=== PATIENT | female | born 1980 | race Two or more races ===

== ENCOUNTER → 2024-08-28 | Outpatient (CLI) | payer OTHER, SELFPAY ==
--- NOTE | 2024-08-28 08:45 | XR_ITS ---
Examination: Breast ultrasound, unilateral, left complete Date and time of exam: August 28, 2024 at 0854 hrs. Indications: Mammogram Reason 2023 10 mm round nodule upper slightly inner left breast, left breast sonogram November 25, 2022 12:00 nodule 11 x 11 mm 12:00 nodule 5 x 6 mm Technique: Real-time seals scale ultrasonographic imaging performed left breast including all 4 quadrants as well as nipple retroareolar and axillary region. Findings: 12:00 oval mass lobular margins 13 x 11 mm 12:00 oval mass lobular margins 5 x 4 mm 11:00 retroareolar cyst 5 x 5 mm Multiple smaller cysts Impression: BI-RADS Category 3: Probably benign findings One additional 6 month left breast sonogram follow-up strongly recommended to document stability of solid nodules 12:00 position left breast
--- NOTE | 2024-08-28 09:15 | XR_ITS ---
Examination: Diagnostic digital mammography, bilateral Computer aided detection 3-D breast Tomosynthesis, bilateral Date and time of exam: August 28, 2024 0914 hrs. Compared to mammograms dating to April 18, 2020 Technique: Nonmagnified MLO, CC views of the breasts to been obtained, reconstructed from 3-D Tomosynthesis images. R2 computer aided detection program utilized for evaluation of suspicious masses and/or abnormal calcifications. 3-D Tomosynthesis images obtained. Findings: The breasts are heterogeneously dense, which may obscure small masses Stable 10 mm focal asymmetry slightly inner left breast on the CC view No interval suspicious masses However, please see the left breast sonogram report today indicating 12:00 nodules requiring 6 month follow-up left breast sonography Impression: BI-RADS Category 2: Benign findings Recommend yearly follow-up mammography Please see the left breast sonogram report today indicating 2 nodules in the 12:00 position left breast requiring 6 month left breast sonography follow-up
== END | disposition home or self-care (01) ==
LOC: CDIM 08:36
PROVIDERS: Referring Provider Physician Assistant Medical; Visit Provider Physician Assistant Medical
DX: R92.323 Mammographic fibroglandular density, bilateral breasts (principal); N63.25 Unspecified lump in the left breast, overlapping quadrants
CPT/HCPCS: 76641; 77062; 77066; G0279

== ENCOUNTER 2024-10-06 20:10 | Emergency (ER) | payer MEDICAID, SELFPAY ==
[2024-10-06 21:10] VITALS: BP 129/79; PULSE 82; RESP 16; TEMP 37.1; O2SAT 99
--- NOTE | 2024-10-06 21:49 | XR_ITS ---
Examination: Pelvic ultrasound, transabdominal, complete Technique: Transabdominal ultrasound of the pelvis performed using grayscale imaging Date and time of exam: October 16, 2024 10:29 PM Indications: Left lower abdomen pain beginning 4 days ago Findings: Uterus 6.7 x 4.2 x 5.8 cm 8 x 10 x 11 mm calcification in the uterine fundus Endometrial stripe 10 mm Right ovary 2.0 x 2.0 x 1.7 cm arterial flow Left ovary obscured by bowel gas Impression: Small benign calcification in the uterus No right adnexal mass Left ovary obscured by bowel gas
--- NOTE | 2024-10-06 21:50 | PD.EDABDPN ---
ED Abdominal Pain RME/HPI General Chief Complaint: Abdominal Pain Stated complaint: LEFT LOWER ABD PAIN Time seen by provider: 10/06/24 21:48 Arrival date/time: 10/06/24 20:10 44F with no significant PMH presents to ED with 3 days of intermittent LLQ/pelvic pain. Patient denies N/V, vaginal bleeding, dysuria, and diarrhea. Possible mild constipation. Limitations: no limitations Related Data Previous Rx's ?Medication ?Instructions ?Recorded pantoprazole 40 mg tablet,delayed 40 mg PO QDAY #20 tabs 09/06/21 release (Protonix) amoxicillin 875 mg-potassium 1 tab PO BID #14 tabs 09/27/22 clavulanate 125 mg tablet ibuprofen 600 mg tablet 600 mg PO TID PRN pain #30 tabs 09/27/22 loperamide 2 mg capsule (Imodium 2 mg PO Q6H PRN loose stool #14 07/07/23 A-D) caps ondansetron 4 mg disintegrating 4 mg PO Q8H PRN nausea and 07/07/23 tablet vomiting #10 tabs phenazopyridine 200 mg tablet 200 mg PO TID PRN pain 6 doses #6 08/31/23 (Pyridium) tabs benzonatate 100 mg capsule 100 mg PO TID PRN cough #10 caps 04/03/24 Allergies Allergy/AdvReac Type Severity Reaction Status Date / Time No Known Allergies Allergy Verified 04/03/24 17:59 Review of Systems Review of Systems Systems Reviewed: All systems reviewed, normal except as documented Constitutional Constitutional: Reports system reviewed and no additional complaints, except as documented, Denies fever(s) and Denies headache(s) ENT Ears, Nose, Mouth, and Throat: Denies disequilibrium and Denies headache(s) Cardiovascular Cardiovascular: Reports system reviewed and no additional complaints, except as documented, Denies chest pain and Denies dyspnea Respiratory Respiratory: Reports system reviewed and no additional complaints, except as documented, Denies cough and Denies dyspnea Gastrointestinal Gastrointestinal: Reports system reviewed and no additional complaints, except as documented, Reports as per HPI, Reports abdominal pain, Denies nausea and Denies vomiting Genitourinary Genitourinary: Reports as per HPI and Reports pelvic pain Neurologic Neurologic: Reports system reviewed and no additional complaints, except as documented, Denies confusion, Denies disequilibrium and Denies headache(s) Psychiatric Psychiatric: Denies confusion Past Medical History Past Medical History CARDIAC: Negative Congestive Heart Failure RESPIRATORY: Negative Chronic Obstructive Pulmonary Disease (COPD) GENITOURINARY: Negative Renal Disease MUSCULOSKELETAL: Positive Musculoskeletal Disorders ENDOCRINE: Negative Diabetes Mellitus Type 1 or Diabetes Mellitus Type 2 Social History SMOKING STATUS: Never smoker ED Exam General Limitations: Present no limitations General appearance: Present alert and in no apparent distress Head Head exam: Present atraumatic Eye Eye exam: Present normal appearance, PERRL and EOMI ENT ENT exam: Present normal exam, normal oropharynx and mucous membranes moist Neck Neck exam: Present normal inspection, full ROM and trachea midline Chest Chest inspection: Present normal inspection and symmetric chest wall rise Respiratory Respiratory exam: Present normal lung sounds bilaterally Cardiovascular Cardiovascular exam: Present regular rate, normal rhythm and normal heart sounds Abdominal Exam Abdominal exam: Present soft and normal bowel sounds Abdominal tenderness: Present LLQ Extremities Exam Extremities exam: Present normal inspection and full ROM Back Exam Back exam: Present normal inspection and full ROM Neurological Exam Neurological exam: Present alert, oriented X3 and CN II-XII intact Psychiatric Psychiatric exam: Present normal affect and normal mood Skin Skin exam: Present warm, dry, intact and normal color Course Quality Measures none Orders Category Date Time Status US pelvic complete Stat Exams 10/06/24 21:49 Completed US transvaginal Stat Exams 10/06/24 22:48 Completed CBC Stat Lab 10/06/24 21:57 Completed CMP [Comprehensive Metabolic Panel] Stat Lab 10/06/24 21:57 Completed Drug Screen,Urine Stat Lab 10/06/24 23:08 Completed HCG Qualitative,Urine Stat Lab 10/06/24 23:08 Completed Lipase Stat Lab 10/06/24 21:57 Completed UA [Urinalysis] Stat Lab 10/06/24 23:08 Completed Lactulose Syrup [Enulose Syrup] Med 10/07/24 00:49 Once 10 gm PO X1 ONE Naproxen [Naprosyn] Med 10/07/24 00:49 Discontinued 500 mg PO X1 ONE Vital Signs Vital signs: Vital Signs Temperature 98.8 F 10/06/24 21:10 Pulse Rate 82 10/06/24 21:10 Respiratory Rate 16 10/06/24 21:10 Blood Pressure 129/79 10/06/24 21:10 Pulse Oximetry (%) 99 10/06/24 21:10 Oxygen Delivery Method Room Air 10/06/24 21:10 O2 at 99% on RA and WNLs Abdominal Pain MDM MDM Narrative MDM Narrative:: 44F with no significant PMH presents to ED with 3 days of intermittent LLQ/pelvic pain. Patient denies N/V, vaginal bleeding, dysuria, and diarrhea. Possible mild constipation. Physical exam reveals LLQ/pelvic tenderness. Patient is afebrile, calm, and alert. US unremarkable though L ovary not seen due to bowel gas. Suspicion for ovarian torsion low given pain is intermittent and mild. No leukocytosis. CMP unremarkable. Lipase normal. UA clean. Suspicion for diverticulitis also low given clinical presentation. No diverticulosis on CT from 2 years ago here. Pain may be due to constipation, which patient has had chronically for the past year. Property Accountant given including to return for CT if worsening pain. Patient data External records reviewed:: [facility] previous records Clinical information provided by:: patient Social determinants that could affect healthcare access:: none Patient has the following chronic illnesses:: none How is presenting disease/condition affected by chronic disease/condition?: no chronic disease Evaluation data The following diagnostics were reviewed and interpreted by me:: lab results Lab and/or radiology exams considered but not ordered:: ordered Interpretation Summary: above Medications / Prescriptions Medications or Prescriptions considered but not ordered:: ordered Medication administrations:: Medication Administration History Lactulose (Lactulose Syrup 20 Gm/30 Ml Udc) 10 gm PO X1 ONE; Protocol Stop: 10/07/24 00:50 Discontinued Medications Naproxen (Naproxen 250 Mg Tablet) 500 mg PO X1 ONE Stop: 10/07/24 00:50 above Consultations Consultation(s) initiated? (list below): No Diagnosis Differential diagnosis abdominal pain: abdominal pain, acute appendicitis, calculus of kidney, constipation, diverticulitis, endometriosis, gastroenteritis, pancreatitis and small bowel obstruction Most likely diagnosis given after review of the tests above:: ab locke Admission Indicated Admission indicated?: not indicated Admission Request Was there a request for admission?: No Disposition Plan Disposition Plan: Discharge Discharge Attestation Discharge Attestation: The patient and all family members were given an opportunity to ask questions and understood the discharge instructions. Discharge instructions specifically effects, indications for sooner follow up or return to the emergency department, and the expected course of current diagnosis. Patient condition: Stable Discharge Plan Plan Patient Disposition: HOME (Self Care) Disposition Comment: Stable Prescriptions/Referrals Prescriptions/Med Rec: No Action pantoprazole [Protonix] 40 mg tablet,delayed release (DR/EC) 40 mg PO QDAY Qty: 20 0RF amoxicillin-pot clavulanate 875-125 mg tablet 1 tab PO BID Qty: 14 0RF ibuprofen 600 mg tablet 600 mg PO TID PRN (Reason: pain) Qty: 30 0RF phenazopyridine [Pyridium] 200 mg tablet 200 mg PO TID PRN (Reason: pain) Qty: 6 0RF loperamide [Imodium A-D] 2 mg capsule 2 mg PO Q6H PRN (Reason: loose stool) Qty: 14 0RF ondansetron 4 mg tablet,disintegrating 4 mg PO Q8H PRN (Reason: nausea and vomiting) Qty: 10 0RF benzonatate 100 mg capsule 100 mg PO TID PRN (Reason: cough) Qty: 10 0RF Referrals: Bernardo Walsh MD [Primary Care Provider] - In 1 week Problem List Clinical Impression: Abdominal pain Patient/Caregiver Discharge Instructions Education Materials: ED Abdominal Pain Unkn Cause Fem Additional Instructions: Please follow-up with PCP within 24-48 hours and return immediately if symptoms worsen. Print Language: Amharic Stand Alone Forms: Patient Portal Info Letter PA/COMMUNITY MARKETING COORDINATOR Supervising Physician PA/COMMUNITY MARKETING COORDINATOR Supervising Physician: Dr. Zamora
[2024-10-06 22:17] LABS: Basophils # (Auto) 0.1 Thou/mm3 (0.0-0.2); Basophils % (Auto) 1 % (0-2.5); Eosinophils # (Auto) 0.2 Thou/mm3 (0.0-0.5); Eosinophils % (Auto) 2 % (0-10); Hematocrit 37.6 % (36.0-46.0); Hemoglobin 12.4 g/dL (12.0-16.0); Immature Granulocytes % (Auto) 0 % (0-0); Immature Granulocytes Auto 0.02 Thou/mm3 (0.00-0.00); Lymphocytes # (Auto) 3.6 Thou/mm3 (1.0-4.8); Lymphocytes % (Auto) 42 % (10-50); Mean Corpuscular Hemoglobin 28.7 pg (25.0-35.0); Mean Corpuscular Volume 87 fL (80-100); Monocytes # (Auto) 0.9 Thou/mm3 (0.0-0.8); Monocytes % (Auto) 10 % (0-12); Neutrophils # (Auto) 3.9 Thou/mm3 (1.8-7.7); Neutrophils % (Auto) 45 % (37-80); Nucleated Red Blood Cell % 0 /100 WBC (0); Platelet Count 262 Thou/mm3 (140-440); RDW Standard Deviation 43.3 fL (36.4-46.3); Red Blood Count 4.32 Miln/mm3 (4.00-5.20); White Blood Count 8.6 Thou/mm3 (3.6-11.0)
[2024-10-06 22:37] LABS: Alanine Aminotransferase 24 U/L (10-49); Albumin, Serum 4.3 gm/dL (3.5-5.0); Albumin/Globulin Ratio 1.4 (1.2-2.2); Alkaline Phosphatase 80 U/L (46-116); Anion Gap 7 (7-16); Aspartate Amino Transferase 22 U/L (0-34); BUN/Creatinine Ratio 22 Ratio (12-20); Bilirubin,Total 0.3 mg/dL (0.3-1.2); Blood Urea Nitrogen 13 mg/dL (9-23); Calcium 8.7 mg/dL (8.3-10.6); Calcium (Corrected) 8.7 mg/dL (8.5-10.1); Carbon Dioxide 25.5 mMol/L (20.0-31.0); Chloride 106 mMol/L (98-107); Creatinine (Component) 0.6 mg/dL (0.6-1.3); Globulin 3.1 gm/dL (2.3-3.5); Glucose 97 mg/dL (74-106); Lipase 39 U/L (12-53); Osmolality,Calculated 275 (275-295); Potassium 4.1 mMol/L (3.4-5.1); Sodium 138 mMol/L (136-145); Total Protein 7.4 gm/dL (5.7-8.2); eGFR > 60 See Note
--- NOTE | 2024-10-06 22:48 | XR_ITS ---
Examination: Transvaginal ultrasound of the pelvis, complete Technique: Transvaginal sonographic images pelvis performed using seals scale imaging Exam date and time: October 16, 2024 1052 hrs. Indications: Left lower abdomen pain beginning 2 days ago Findings: Uterus 8.4 x 5.0 x 4.8 cm Endometrial stripe 10 mm No uterine mass or intrauterine gestation Ovaries obscured by bowel gas Impression: Limited study If the patient is postmenopausal the endometrial stripe is abnormally thickened and follow-up short-term transvaginal pelvic sonography should be performed, clinical correlation advised
[2024-10-06 23:12] LABS: Collection Type, Urine Clean Catch; WBC,Urine 0 /hpf (0-5)
[2024-10-06 23:19] LABS: Bilirubin,Urine Negative (Negative); Blood,Urine Negative (Negative); Clarity,Urine Clear (Clear/Hazy); Color,Urine Lt-Yellow (Lt Yel-Yel); Glucose, Urine Negative (Negative); Ketones,Urine Negative (Negative); Leukocyte Esterase,Urine Negative (Negative); Nitrite,Urine Negative (Negative); PH,Urine 6.5 (5.0-7.0); Protein,Urine Negative (Neg - Trace); RBC,Urine 2 /hpf (0-3); Specific Gravity,Urine 1.016 (1.001-1.035); Squamous Epithelial Cell,Urine < 1 /hpf (0-5); Urobilinogen,Urine Negative mg/dL (0.0-1.0)
[2024-10-06 23:24] LABS: HCG Qualitative,Urine Negative
[2024-10-07 00:01] LABS: Amphetamine/Methamp Scrn,U Negative (Negative); Barbiturate Screen,Urine Negative (Negative); Benzodiazepines Screen,Urine Negative (Negative); Benzoylecgonine Screen, Ur Negative (Negative); Fentanyl Screen,Urine Negative (Negative); Opiate Screen,Urine Negative (Negative); THC Screen,Urine Negative (Negative)
[2024-10-07] MEDS: LACTULOSE SYRUP 20 GM/30 ML UDC 10 GM PO (01:06)
[2024-10-07] MEDS: NAPROXEN 250 MG TABLET 500 MG PO (01:06)
== END 2024-10-07 01:11 | disposition home or self-care (01) ==
PROVIDERS: Physician Assistant; Emergency Provider Emergency Medicine; PCP Family Medicine
DX: R10.32 Left lower quadrant pain (principal)
CPT/HCPCS: 36415; 76830; 76856; 80053; 80307; 81001; 81025; 83690; 85025; 99284; A9270

== ENCOUNTER 2024-12-19 15:54 | Emergency (ER) | payer MEDICAID, SELFPAY ==
[2024-12-19 16:06] VITALS: BP 139/88; PULSE 87; RESP 18; TEMP 37.3; O2SAT 98
--- NOTE | 2024-12-19 16:16 | PD.EDSKIN ---
ED Skin Abcess FB-RME/HPI General Chief complaint: Skin/Abscess/Foreign Body Stated complaint: RASH ALL OVER BODY Time Seen by Provider: 12/19/24 15:59 Source: patient Arrival date/time: 12/19/24 15:54 Mode of arrival: ambulatory Limitations: no limitations RME / HPI RME / HPI narrative: 44-year-old female presents to emergency department with spontaneous abruptions bilateral rash that began 3 days ago. Describes itching MD complaint: rash Related Data Previous Rx's ?Medication ?Instructions ?Recorded pantoprazole 40 mg tablet,delayed 40 mg PO QDAY #20 tabs 09/06/21 release (Protonix) amoxicillin 875 mg-potassium 1 tab PO BID #14 tabs 09/27/22 clavulanate 125 mg tablet ibuprofen 600 mg tablet 600 mg PO TID PRN pain #30 tabs 09/27/22 loperamide 2 mg capsule (Imodium 2 mg PO Q6H PRN loose stool #14 07/07/23 A-D) caps ondansetron 4 mg disintegrating 4 mg PO Q8H PRN nausea and 07/07/23 tablet vomiting #10 tabs phenazopyridine 200 mg tablet 200 mg PO TID PRN pain 6 doses #6 08/31/23 (Pyridium) tabs benzonatate 100 mg capsule 100 mg PO TID PRN cough #10 caps 04/03/24 diphenhydramine HCl 25 mg tablet 25 mg PO TID PRN allergy symptoms 12/19/24 (Benadryl Allergy) 10 days #30 tabs Allergies Allergy/AdvReac Type Severity Reaction Status Date / Time No Known Allergies Allergy Verified 12/19/24 15:56 Review of Systems Review of Systems Systems Reviewed: All systems reviewed, normal except as documented Integumentary/Breasts Skin/Breast: Reports system reviewed and no additional complaints, except as documented, Reports as per HPI, Reports pruritus and Reports rash Past Medical History Past Medical History CARDIAC: Negative Congestive Heart Failure RESPIRATORY: Negative Chronic Obstructive Pulmonary Disease (COPD) GENITOURINARY: Negative Renal Disease MUSCULOSKELETAL: Positive Musculoskeletal Disorders ENDOCRINE: Negative Diabetes Mellitus Type 1 or Diabetes Mellitus Type 2 Social History SMOKING STATUS: Never smoker ED Exam General Limitations: Present no limitations General appearance: Present alert and in no apparent distress Head Head exam: Present atraumatic Eye Eye exam: Present normal appearance, PERRL and EOMI ENT ENT exam: Present normal exam, normal oropharynx and mucous membranes moist Neck Neck exam: Present normal inspection, full ROM and trachea midline Chest Chest inspection: Present normal inspection and symmetric chest wall rise Respiratory Respiratory exam: Present normal lung sounds bilaterally Cardiovascular Cardiovascular exam: Present regular rate, normal rhythm and normal heart sounds Abdominal Exam Abdominal exam: Present soft and normal bowel sounds Extremities Exam Extremities exam: Present normal inspection and full ROM Back Exam Back exam: Present normal inspection and full ROM Neurological Exam Neurological exam: Present alert, oriented X3 and CN II-XII intact Psychiatric Psychiatric exam: Present normal affect and normal mood Skin Skin exam: Present warm, dry, intact, normal color and rash (Urticaria is present and this is more pronounced on the right upper chest as well as the mid to low back. There is no apparent excoriations secondary to taking place.) Course Quality Measures none Orders Category Date Time Status Dexamethasone Inj [Decadron Inj] Med 12/19/24 16:16 Discontinued 10 mg IM X1 ONE DiphenhydrAMINE [Benadryl] Med 12/19/24 17:21 Discontinued 25 mg PO X1 ONE Vital Signs Vital signs: Vital Signs Temperature 99.1 F 12/19/24 16:06 Pulse Rate 87 12/19/24 16:06 Respiratory Rate 18 12/19/24 16:06 Blood Pressure 139/88 H 12/19/24 16:06 Pulse Oximetry (%) 98 12/19/24 16:06 Oxygen Delivery Method Room Air 12/19/24 16:06 Pulse ox is 98% room air Skin / Abscess / Foreign Body MDM Narrative MDM Narrative:: Patient will about 10 mg of dexamethasone IM. I will send to the pharmacy Benadryl 25 mg to be consumed 1 p.o. every 6 as needed. Patient is to find the insulting region and remove it. Otherwise she has to follow-up with primary care physician in 1 week. Patient demonstrates no apparent anaphylaxis. Patient is also discharged in no apparent distress. Patient data External records reviewed:: [facility] previous records Clinical information provided by:: patient Social determinants that could affect healthcare access:: none (n/a) Patient has the following chronic illnesses:: N/A How is presenting disease/condition affected by chronic disease/condition?: no chronic disease (na) Evaluation data The following diagnostics were reviewed and interpreted by me:: other (specify) (na) Lab and/or radiology exams considered but not ordered:: N/A Interpretation Summary: N/A Medications / Prescriptions Medications or Prescriptions considered but not ordered:: N/A Medication administrations:: Medication Administration History Discontinued Medications Dexamethasone Sodium Phosphate (Dexamethasone Sod Phos Inj 10 Mg/Ml Vial) 10 mg IM X1 ONE Stop: 12/19/24 16:17 Last Admin: 12/19/24 16:35 Dose: 10 mg Documented By: Diphenhydramine HCl (Diphenhydramine 25 Mg Capsule) 25 mg PO X1 ONE Stop: 12/19/24 17:22 Last Admin: 12/19/24 17:32 Dose: 25 mg Documented By: N/A Consultations Consultation(s) initiated? (list below): No Diagnosis Skin/Abscess Differential Diagnosis: urticaria Most likely diagnosis given after review of the tests above:: N/A Admission Indicated Admission indicated?: not indicated Admission Request Was there a request for admission?: No Disposition Plan Disposition Plan: Discharge Discharge Attestation Discharge Attestation: The patient and all family members were given an opportunity to ask questions and understood the discharge instructions. Discharge instructions specifically effects, indications for sooner follow up or return to the emergency department, and the expected course of current diagnosis. Patient condition: Stable Discharge Plan Plan Patient Disposition: HOME (Self Care) Disposition Comment: Discharge in no apparent distress Prescriptions/Referrals Prescriptions/Med Rec: New diphenhydramine HCl [Benadryl Allergy] 25 mg tablet 25 mg PO TID MDD 100 mg PRN (Reason: allergy symptoms) 10 Days Qty: 30 0RF No Action pantoprazole [Protonix] 40 mg tablet,delayed release (DR/EC) 40 mg PO QDAY Qty: 20 0RF amoxicillin-pot clavulanate 875-125 mg tablet 1 tab PO BID Qty: 14 0RF ibuprofen 600 mg tablet 600 mg PO TID PRN (Reason: pain) Qty: 30 0RF phenazopyridine [Pyridium] 200 mg tablet 200 mg PO TID PRN (Reason: pain) Qty: 6 0RF loperamide [Imodium A-D] 2 mg capsule 2 mg PO Q6H PRN (Reason: loose stool) Qty: 14 0RF ondansetron 4 mg tablet,disintegrating 4 mg PO Q8H PRN (Reason: nausea and vomiting) Qty: 10 0RF benzonatate 100 mg capsule 100 mg PO TID PRN (Reason: cough) Qty: 10 0RF Problem List Clinical Impression: Urticaria Impression comment: . Patient/Caregiver Discharge Instructions Other Activity Instructions:: N/A Diet Instructions: N/A Education Materials: ED Hives (Adult) Additional Instructions: Patient is to primary care physician for follow-up for today's visit within 1 week where she is to return if worse or not better. Patient will be prescribed Benadryl when she has to find the bed being allergic and remove it. Patient is discharged in no apparent distress Print Language: Fijian Stand Alone Forms: Judy Award Info., Patient Portal Info Letter PA/SALES UTILITY REPRESENTATIVE Supervising Physician PA/SALES UTILITY REPRESENTATIVE Supervising Physician: GEOVANNA
[2024-12-19] MEDS: DEXAMETHASONE SOD PHOS INJ 10 MG/ML VIAL IM (16:35)
[2024-12-19] MEDS: DiphenhydrAMINE 25 MG CAPSULE PO (17:32)
== END 2024-12-19 18:00 | disposition home or self-care (01) ==
PROVIDERS: Emergency Provider Emergency Medicine
DX: L50.9 Urticaria, unspecified (principal)
CPT/HCPCS: 96372; 99283; J1100; A9270

== ENCOUNTER 2024-12-29 21:06 | Emergency (ER) | payer MEDICAID, SELFPAY ==
[2024-12-29 21:15] VITALS: BP 144/90; PULSE 81; RESP 18; TEMP 36.9; O2SAT 98
--- NOTE | 2024-12-29 21:57 | EDNOTE_ITS ---
<Statement entered by Lizette Anderson MD - 03/08/25 19:08> As co-signing physician, I was present and available for consult prn. I concur with the plan and care as documented by the midlevel provider. ED General RME/HPI General Chief complaint: Skin/Abscess/Foreign Body Stated complaint: RASH AND GENERALIZED ITCHING Time Seen by Provider: 12/29/24 21:26 Arrival date/time: 12/29/24 21:06 RME / HPI RME / HPI narrative: 44-year-old female presents to the ED with a complaint of itchy rash to her neck, anterior chest, and bilateral AC areas. This is the second time this has occurred. She was seen here previously for the same thing and given Benadryl. She denies any new foods, laundry soap, bath soap or shampoos. She states she feels some fullness with swallowing but no difficulty breathing or tongue swelling. She was seen by her primary care physician and labs were ordered. She has not received those results yet. She has not seen an supply cataloguer either. Related Data Previous Rx's ?Medication ?Instructions ?Recorded pantoprazole 40 mg tablet,delayed 40 mg PO QDAY #20 ta bs 09/06/21 release (Protonix) amoxicillin 875 mg-potassium 1 tab PO BID #14 tabs clavulanate 125 mg tablet ibuprofen 600 mg tablet 600 mg PO TID PRN pain #30 t abs 09/27/22 loperamide 2 mg capsule (Imodium 2 mg PO Q6H PRN loose stool #14 07/07/23 A-D) caps ondansetron 4 mg disintegrating 4 mg PO Q8H PRN nausea and 07/07/23 tablet vomiting #10 tabs phenazopyridine 200 mg tablet 200 mg PO TID PRN pain 6 doses #6 08/31/23 (Pyridium) tabs benzonatate 100 mg capsule 100 mg PO TID PRN cough #10 caps 04/03/24 famotidine 20 mg tablet 20 mg PO QDAY #14 tabs 12/29 loratadine 10 mg tablet 10 mg PO QDAY #30 tabs 12/29 Allergies Allergy/AdvReac Type Severity Reaction Status Date / Time No Known Allergies Allergy Verified 12/29/24 21:07 Review of Systems Review of Systems Systems Reviewed: All systems reviewed, normal except as documented Past Medical History Past Medical History CARDIAC: Negative Congestive Heart Failure RESPIRATORY: Negative Chronic Obstructive Pulmonary Disease (COPD) GENITOURINARY: Negative Renal Disease MUSCULOSKELETAL: Positive Musculoskeletal Disorders ENDOCRINE: Negative Diabetes Mellitus Type 1 or Diabetes Mellitus Type 2 Social History SMOKING STATUS: Never smoker ED Exam Narrative Physical exam: Pleasant 44-year-old female, no acute distress. Urticarial type rash noted to the anterior chest wall as well as neck, and bilateral AC areas. Lungs are clear without wheezing. No stridor is noted. Oropharynx is clear without swelling or erythema. Course Course Course Narrative: Patient was given Pepcid 20mg, Prednisone 60mg, and Claritin 10mg PO. Quality Measures none Orders Category Date Time Status Famotidine [Pepcid] Med 12/29/24 21:54 Discontinued 20 mg PO X1 ONE lorataDINE [Claritin] Med 12/29/24 21:54 Discontinued 10 mg PO X1 ONE predniSONE Med 12/29/24 21:54 Discontinued 60 mg PO X1 ONE Vital Signs Vital signs: Vital Signs Temperature 98.4 F 12/29/24 21:15 Pulse Rate 81 12/29/24 21:15 Respiratory Rate 18 12/29/24 21:15 Blood Pressure 144/90 H 12/29/24 21:15 Pulse Oximetry (%) 98 12/29/24 21:15 Oxygen Delivery Method Room Air 12/29/24 21:15 Discharge Plan Plan Patient Disposition: HOME (Self Care) Discharge Disposition comment: Stable and improved Prescriptions/Referrals Prescriptions/Med Rec: New famotidine 20 mg tablet 20 mg PO QDAY Qty: 14 0RF loratadine 10 mg tablet 10 mg PO QDAY Qty: 30 0RF No Action pantoprazole [Protonix] 40 mg tablet,delayed release (DR/EC) 40 mg PO QDAY Qty: 20 0RF amoxicillin-pot clavulanate 875-125 mg tablet 1 tab PO BID Qty: 14 0RF ibuprofen 600 mg tablet 600 mg PO TID PRN (Reason: pain) Qty: 30 0RF phenazopyridine [Pyridium] 200 mg tablet 200 mg PO TID PRN (Reason: pain) Qty: 6 0RF loperamide [Imodium A-D] 2 mg capsule 2 mg PO Q6H PRN (Reason: loose stool) Qty: 14 0RF ondansetron 4 mg tablet,disintegrating 4 mg PO Q8H PRN (Reason: nausea and vomiting) Qty: 10 0RF benzonatate 100 mg capsule 100 mg PO TID PRN (Reason: cough) Qty: 10 0RF Problem List Clinical Impression: Urticaria Patient/Caregiver Discharge Instructions Education Materials: ED Hives (Adult) Additional Instructions: Follow-up with your primary care physician in 24 to 48 hours. Return to the ED for any new or worsening symptoms. 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 Anderson MDM Narrative MDM hospital course (for use when minimal MDM required): 44-year-old female presents to the ED with a complaint of itchy rash to her neck, anterior chest, and bilateral AC areas. This is the second time this has occurred. She was seen here previously for the same thing and given Benadryl. She denies any new foods, laundry soap, bath soap or shampoos. She states she feels some fullness with swallowing but no difficulty breathing or tongue swelling. She was seen by her primary care physician and labs were ordered. She has not received those results yet. She has not seen an supply cataloguer either. Pleasant 44-year-old female, no acute distress. Urticarial type rash noted to the anterior chest wall as well as neck, and bilateral AC areas. Lungs are clear without wheezing. No stridor is noted. Oropharynx is clear without swelling or erythema. Patient was given Pepcid 20mg, Prednisone 60mg, and Claritin 10mg PO. Clinical Information Provided by: patient Medical Records reviewed None Meds/Rx considered, not ordered None Labs/Rad/Tests considered, not ordered None Chronic Illness/Social Conditions which may negatively complicate care or outcome(s)-explain: None or not applicable EKG EKG not done Labs Labs: none Imaging Imaging interpretation: none or see narrative above Medication Administration(s) Medication Administration History Discontinued Medications Famotidine (Famotidine 20 Mg Tablet) 20 mg PO X1 ONE Stop: 12/29/24 21:55 Last Admin: 12/29/24 22:08 Dose: 20 mg Documented By: ANGELO Loratadine (Loratadine 10 Mg Tablet) 10 mg PO X1 ONE Stop: 12/29/24 21:55 Last Admin: 12/29/24 22:08 Dose: 10 mg Documented By: KF Prednisone (Prednisone 20 Mg Tablet) 60 mg PO X1 ONE Stop: 12/29/24 21:55 Last Admin: 12/29/24 22:08 Dose: 60 mg Documented By: KF Patient was given Pepcid 20mg, Prednisone 60mg, and Claritin 10mg PO.
[2024-12-29] MEDS: predniSONE 20 MG TABLET 60 MG PO (22:08)
[2024-12-29] MEDS: FAMOTIDINE 20 MG TABLET PO (22:08)
[2024-12-29] MEDS: lorataDINE 10 MG TABLET PO (22:08)
== END 2024-12-29 22:17 | disposition home or self-care (01) ==
PROVIDERS: Emergency Provider Emergency Medicine; PCP Family Medicine
DX: L50.9 Urticaria, unspecified (principal)
CPT/HCPCS: 99282; J7512; A9270